=== PATIENT | male | born 1940 | race Caucasian/White ===

== ENCOUNTER 2019-12-31 13:53 | Outpatient (CLI) | payer MEDICARE, SELFPAY ==
--- NOTE | ~2019-12-31 | US_ITS ---
EXAMINATION: US art doppler w press LE BI DATE: 12/31/2019 15:10 INDICATION: Peripheral arterial disease. TECHNIQUE: Segmental pressures and plethysmographic and Doppler waveforms of the brachial and lower e xtremity arteries were obtained. COMPARISON: Arterial Doppler and segmental pressures 07/26/2018 FINDINGS: Right and left brachial artery pressures of 114 mm Hg and 130 mm Hg, respectively, are concordant (no rmal difference <= 30 mmHg). The right high-thigh pressure index was not measured (normal > 1.2). The right ankle-brachial index ( KEVIN) is 0.58 (normal >= 0.9-1.0), improved from 0.54 on 07/26/2018. The right great toe-brachial index (TBI) is 0.27 (normal >= 0.65). Arterial Doppler waveforms are biphasic from common femoral artery to the ankle. The left high-thigh pressure index was not measured. The left KEVIN is 0.47, worsened from 0.52 on 2018. The left TBI is 0.42. Arterial Doppler waveforms are biphasic from common femoral artery to the ankle. IMPRESSION: 1. Moderately decreased right KEVIN and severely decreased left KEVIN, consistent with arterial occlusive disease. Reviewed, dictated and finalized at location B. IMPRESSION: 1. Moderately decreased right KEVIN and severely decreased left KEVIN, consistent w ith arterial occlusive disease.
== END 2019-12-31 13:54 | disposition home or self-care (01) ==
LOC: ANHIMG 14:13
PROVIDERS: PCP Family Medicine; Visit Provider Internal Medicine Cardiovascular Disease
DX: I73.9 Peripheral vascular disease, unspecified (principal)
CPT/HCPCS: 93923

== ENCOUNTER 2020-12-23 12:06 | Outpatient (CLI) | payer MEDICARE, SELFPAY ==
--- NOTE | ~2020-12-23 | US_ITS ---
EXAMINATION: US art doppler w press ROSA BI DATE: 12/23/2020 13:24 INDICATION: Peripheral arterial disease. TECHNIQUE: Segmental pressures and plethysmographic and Doppler waveforms of the brachial and lower e xtremity arteries were obtained. COMPARISON: Ultrasound 12/31/2019 FINDINGS: Right and left brachial artery pressures of 147 mm Hg and 142 mm Hg, respectively, are concordant (no rmal difference <= 30 mmHg). The right ankle-brachial index (KEVIN) is 0.50 (normal >= 0.9-1.0). The right great toe-brachial index (TBI) is 0.44 (normal >= 0.65). Arterial Doppler waveforms are biphasic from common femoral artery to posterior tibial artery and poorly detectable in dorsalis pedis. The left KEVIN is 0.50. The left TBI is 0.41. Arterial Doppler waveforms are biphasic from common femor al artery to dorsalis pedis. IMPRESSION: 1. Moderately decreased ABIs with interval worsening on the right, consistent with arterial occlusive disease. Reviewed, dictated and finalized at location A. IMPRESSION: 1. Moderately decreased ABIs with interval worsening on the right, consistent w ith arterial occlusive disease.
== END 2020-12-23 12:07 | disposition home or self-care (01) ==
LOC: ANHIMG 12:11
PROVIDERS: PCP Family Medicine; Visit Provider Internal Medicine Cardiovascular Disease
DX: I73.9 Peripheral vascular disease, unspecified (principal)
CPT/HCPCS: 93923

== ENCOUNTER → 2021-05-15 11:09 | Outpatient (CLI) | payer MEDICARE, SELFPAY ==
--- NOTE | ~2021-05-15 | XR_ITS ---
XR hip RT 2V w AP pelvis DATE: 05/15/2021 11:29 INDICATION: Right hip pain TECHNIQUE: AP pelvis. AP and lateral views of right hip. COMPARISON: None FINDINGS: Multiple radiopaque seeds are noted overlying the prostate bed. There is severe calcificati on of the abdominal aorta, iliac arteries, right common femoral and femoral arteries. There is a sten t overlying left common iliac artery. No pelvic fracture or bone destruction is detected. The pubic symphysis and sacroiliac joints are int act. There is mild right hip osteoarthritis. No right hip fracture or dislocation, avascular necrosis or b one destruction is detected. IMPRESSION: Mild right hip osteoarthritis Severe atherosclerotic calcification of the abdominal aorta, iliac and femoral arteries Radiopaque prostate seeds Reviewed, dictated and finalized at location A. STICS TECH
== END ==
PROVIDERS: PCP Family Medicine; Visit Provider Family Medicine
DX: M25.551 Pain in right hip (principal); M16.11 Unilateral primary osteoarthritis, right hip; I70.0 Atherosclerosis of aorta
CPT/HCPCS: 73502

== ENCOUNTER 2022-01-27 07:45 | Outpatient (CLI) | payer MEDICARE, SELFPAY ==
--- NOTE | ~2022-01-27 | US_ITS ---
EXAMINATION: US art doppler w press LE BI DATE: 01/27/2022 09:23 INDICATION: Peripheral arterial occlusive disease. TECHNIQUE: Segmental pressures and plethysmographic and Doppler waveforms of the brachial and lower e xtremity arteries were obtained. COMPARISON: None. FINDINGS: Right and left brachial artery pressures of 138 mm Hg and 136 mm Hg, respectively, are concordant (no rmal difference <= 30 mmHg). The right ankle-brachial index (KEVIN) is 0.67 (normal >= 0.9-1). The right great toe-brachial index (T BI) is 0.29 (normal >= 0.6-0.8). Arterial waveforms are biphasic waveforms throughout with normal sys tolic upstrokes at the right common femoral and superficial femoral arteries and borderline delayed u pstrokes the more distal right popliteal, posterior tibial and dorsalis pedis arteries where there is some broadening of the systolic peaks. The left KEVIN is 0.55. The left TBI is 0.28. Arterial waveforms are biphasic waveforms throughout with normal systolic upstrokes at the left common femoral and superficial femoral arteries and borderline delayed upstrokes the more distal right popliteal, posterior tibial and dorsalis pedis arteries wher e there is some broadening of the systolic peaks. IMPRESSION: 1. Arterial occlusive disease to the bilateral lower limbs with moderately decreased ABIs and TBIs. Reviewed, dictated and finalized at location A. IMPRESSION: 1. Arterial occlusive disease to the bilateral lower limbs with moderately decr eased ABIs and TBIs.
== END 2022-01-27 07:46 | disposition home or self-care (01) ==
PROVIDERS: PCP Family Medicine; Visit Provider Internal Medicine Cardiovascular Disease
DX: I73.9 Peripheral vascular disease, unspecified (principal)
CPT/HCPCS: 93923

== ENCOUNTER → 2022-08-19 16:21 | Outpatient (CLI) | payer MEDICARE, SELFPAY ==
--- NOTE | ~2022-08-19 | XR_ITS ---
XR chest 2V DATE: 08/19/2022 16:38 INDICATION: Cough TECHNIQUE: 2 views COMPARISON: 01/2013 two-view chest FINDINGS: Status post sternotomy. Heart size is within normal limits. Is aortic calcification and mild unfolding. There is chronic left lung volume loss, left pleural thickening, blunting of left costophrenic angle, not significantly changed since 01/2013. No active infiltrate or consolidation, pleural effusion or pulmonary vascular congestion or pneumotho rax or other sylvian change since 01/2013 is evident. IMPRESSION: Chronic left lung volume loss, left pleural thickening; no active disease or significant change since 01/2013 is detected Reviewed, dictated and finalized at location L. IMPRESSION: Chronic left lung volume loss, left pleural thickening; no active d isease or significant change since 01/2013 is detected
== END ==
PROVIDERS: PCP Family Medicine; Visit Provider Family Medicine
DX: R05.9 Cough, unspecified (principal); R91.8 Other nonspecific abnormal finding of lung field
CPT/HCPCS: 71046

== ENCOUNTER 2023-02-14 14:02 | Outpatient (CLI) | payer MEDICARE, SELFPAY ==
--- NOTE | ~2023-02-14 | US_ITS ---
US art doppler w press LE BI INDICATION: Peripheral arterial disease. Claudication. TECHNIQUE: Segmental pressures and plethysmographic and Doppler waveforms of the brachial and lower e xtremity arteries were obtained. COMPARISON: 01/27/2022. FINDINGS: Atherosclerosis is noted in the common femoral and popliteal arteries. Right and left brachial artery pressures of 125 mm Hg and 129 mm Hg, respectively, are concordant (no rmal difference <= 30 mmHg). The right ankle-brachial index (KEVIN) is 0.61 (normal >= 0.9-1.0). The right great toe-brachial index (TBI) is 0.28 (normal >= 0.60). The left KEVIN is 0.52. The left TBI is 0.5. IMPRESSION: 1. Diminished bilateral ankle and toe brachial indices consistent with moderate peripheral arterial o cclusive disease. Reviewed, dictated and finalized at location L. IMPRESSION: 1. Diminished bilateral ankle and toe brachial indices consistent with moderate peripheral arterial occlusive disease.
== END 2023-02-14 14:03 | disposition home or self-care (01) ==
PROVIDERS: PCP Family Medicine; Visit Provider Internal Medicine Cardiovascular Disease
DX: I73.9 Peripheral vascular disease, unspecified (principal); Z95.828 Presence of other vascular implants and grafts
CPT/HCPCS: 93923

== ENCOUNTER → 2023-03-30 13:57 | Outpatient (CLI) | payer MEDICARE, SELFPAY ==
--- NOTE | ~2023-03-30 | XR_ITS ---
EXAMINATION: XR shoulder LT min 2V DATE: 03/30/2023 14:23 INDICATION: Left shoulder pain. TECHNIQUE: 4 views of left shoulder were obtained. COMPARISON: None. FINDINGS: There is superior subluxation of humeral head with narrowing of the subacromial space, cons istent with rotator cuff tear. There are changes of distal left clavicle resection. There is severe o steoarthritis of glenohumeral joint. Median sternotomy wires and mediastinal surgical clips are seen, likely from prior coronary artery bypass grafting. IMPRESSION: 1. Severe osteoarthritis of left glenohumeral joint. 2. Left rotator cuff tear. Reviewed, dictated and finalized at location E. E WORKER
--- NOTE | ~2023-03-30 | XR_ITS ---
EXAMINATION: XR shoulder RT min 2V DATE: 03/30/2023 14:23 INDICATION: Right shoulder pain. TECHNIQUE: 4 views of right shoulder were obtained. COMPARISON: None. FINDINGS: There is superior subluxation of humeral head with respect to glenoid with narrowing of the subacromial space and remodeling of the undersurface of the acromion, consistent with chronic rotato r cuff tear with cuff arthropathy. There is severe osteoarthritis of glenohumeral joint and moderate osteoarthritis of acromioclavicular joint. Median sternotomy wires and mediastinal surgical clips are seen, likely from prior coronary artery bypass grafting. IMPRESSION: 1. 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 2. 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 Reviewed, dictated and finalized at location E. GER BACKGROUND
== END ==
PROVIDERS: PCP Physician Assistant; Visit Provider Physician Assistant
DX: M19.012 Primary osteoarthritis, left shoulder (principal); M19.011 Primary osteoarthritis, right shoulder; M75.102 Unspecified rotator cuff tear or rupture of left shoulder, not specified as traumatic; M75.121 Complete rotator cuff tear or rupture of right shoulder, not specified as traumatic
CPT/HCPCS: 73030

== ENCOUNTER 2023-07-01 12:17 | Outpatient (CLI) | payer MEDICARE, SELFPAY ==
[2023-07-01 13:47] LABS: Influenza A QL RT-PCR Positive (Negative); Influenza B QL RT-PCR Negative (Negative); RSV RNA, RT-PCR Negative (Negative); SARS-CoV-2 RNA PCR Negative (Negative)
== END 2023-07-01 12:18 | disposition home or self-care (01) ==
LOC: ANHLAB 12:20
PROVIDERS: PCP Family Medicine; Visit Provider Physician Assistant
DX: R50.9 Fever, unspecified (principal); Z20.822 Contact with and (suspected) exposure to COVID-19
CPT/HCPCS: 87637

== ENCOUNTER 2024-02-09 22:55 | Emergency (ER) | payer MEDICARE, SELFPAY ==
--- NOTE | ~2024-02-09 | CT_ITS ---
CT head without contrast Indication: Trauma Technique: Serial scans were obtained through the brain without the administration of contrast. Dose reduction technique was used on this scan by utilizing automated exposure control and iterative recon struction technique. The dose-length product (DLP) was 605.33 mGy-cm. Findings: There is no evidence of intracranial hemorrhage, mass lesion, or acute infarct. The ventri cles and subarachnoid spaces are dilated, consistent with moderate atrophy. Low attenuation regions are seen within the periventricular white matter bilaterally, likely representing changes from chroni c microvascular ischemic disease. There is no evidence of edema, mass effect or midline shift. The visualized paranasal sinuses and mastoid air cells are clear. Impression: No intracranial hemorrhage, mass, or acute infarct. Atrophy and chronic white matter changes, as above. Reviewed, dictated and finalized at location . Impression: No intracranial hemorrhage, mass, or acute infarct. Atrophy and chronic white matter changes, as above.
[2024-02-09 22:49] VITALS: BP 91/55; PULSE 115; RESP 20; TEMP 37; O2SAT 95
[2024-02-09 23:02] VITALS: BP 80/61; PULSE 114; RESP 17; TEMP 37; O2SAT 96
[2024-02-09 23:13] LABS: Basophils Percent Auto 0.4 % (0.2-1.2); Eosinophils Absolute Auto 0.1 K/mm3 (0-0.3); Eosinophils Percent Auto 1.1 % (0-4.4); Hematocrit 33.3 % (42.0-52.0); Hemoglobin 11.2 g/dL (14.0-18.0); Immature Granulocyte Absolute 0.04 K/mm3 (0.00-0.031); Immature Granulocyte Percent A 0.4 % (0-0.5); Lymphocytes Absolute Auto 0.81 K/mm3 (0.9-3.2); Lymphocytes Percent Auto 8.2 % (18.3-44.2); Mean Corpuscular HGB Conc 33.6 g/dl (32-36); Mean Corpuscular Hemoglobin 33.5 pg (26-34); Mean Corpuscular Volume 99.7 fl (80-100); Mean Platelet Volume 8.5 fl (7.4-10.4); Monocytes Absolute Auto 0.7 K/mm3 (0.1-0.6); Monocytes Percent Auto 6.6 % (2.6-8.5); Neutrophils Absolute Auto 8.2 K/mm3 (1.3-6.7); Neutrophils Percent Auto 83.3 % (45.5-73.1); Platelet Count Result 153 k/mm3 (150-375); Red Blood Count 3.34 M/mm3 (4.6-6.20); Red Cell Distribution Width 13.2 % (11.5-14.5); White Blood Count 9.8 K/mm3 (4.5-10.0)
[2024-02-09] MEDS: SODIUM CHLORIDE 0.9% IV 1,000 ML 999 ML IV CONT (23:14)
[2024-02-09 23:30] LABS: Alanine Aminotransferase 22 U/L (6-50); Alkaline Phosphatase 70 U/L (38-126); Anion Gap 15 mmol/L (4-12); Aspartate Amino Transferase 26 U/L (17-59); Bilirubin,Total 0.3 mg/dL (0.2-1.3); Blood Urea Nitrogen 13 mg/dL (9-20); Calcium 8.8 mg/dL (8.4-10.2); Carbon Dioxide 18 mmol/L (22-30); Chloride 95 mmol/L (98-107); Estimated CRCL calculation 50 ml/min; Estimated Glomerular Filt Rate > 60; Ethanol 158 mg/dL (<10); Glucose 123 mg/dL (65-110); Sodium 128 mmol/L (137-145)
--- NOTE | 2024-02-09 23:45 | ED.FALL ---
HPI - Fall General Chief Complaint: Fall Stated Complaint: FALL, HYPOTENSION Time Seen by Provider: 02/09/24 23:16 History of Present Illness HPI Narrative: 83-year-old male presented to the emergency department for evaluation for a ground level fall. Patient went to the [facility] and after getting home he was intoxicated stumble and had difficulty getting him back into the house so she called EMS for assistance. She is unsure if he struck his head. Patient denies any current pain. Patient is very hard of hearing. Patient is pleasant and denies any pain or complaints. Related Data Home Medications Medication Instructions Recorded Confirmed atorvastatin 40 mg tablet 40 mg PO DAILY 11/06/19 10/07/23 cilostazol 100 mg tablet 100 mg PO BID 11/06/19 10/07/23 metoprolol succinate 25 mg 25 mg PO DAILY 11/06/19 10/07/23 tablet,extended release 24 hr tamsulosin 0.4 mg capsule (Flomax) 0.4 mg PO DAILY 05/06/20 10/07/23 multivitamin with minerals tablet PO 05/12/21 10/07/23 rivaroxaban 2.5 mg tablet (Xarelto) 2.5 mg PO BID 11/17/21 10/07/23 aspirin 81 mg tablet,delayed 81 mg PO DAILY 09/09/23 10/07/23 release Allergies Allergy/AdvReac Type Severity Reaction Status Date / Time azithromycin Allergy Mild FACIAL Verified 12/06/23 13:25 SWELLING MYCINS Allergy Intermediate Unknown Uncoded 12/06/23 13:25 Review of Systems Review of Systems: All systems reviewed & are unremarkable except as noted in HPI and below PMFSH Past Medical History Medical History CAD (coronary artery disease) History of prostate cancer HLD (hyperlipidemia) Hypertension with heart disease Impaired fasting glucose PAD (peripheral artery disease) Surgical History Surgical History History of repair of left rotator cuff Iliac artery stenosis, bilateral s/p stents S/P CABG (coronary artery bypass graft) Family History Family History Mother Carcinoma of colon Social History Social History (Reviewed 12/06/23 @ 13:25 by NIMO Kohli Smoking packs per day: 1 Smoking cigarettes per day: 20.0 Years smoked: 20 Smoking pack-years: 20.00 Smoking status: Former smoker Tobacco type: cigarettes Second hand tobacco smoke exposure: No Alcohol intake: current Alcohol use details: occasionally Substance use: never Substance use type: does not use Do You Feel Safe in your Home?: Yes Lack of Transportation: No Lack of Food: Never True Current Housing: I Have Housing Concerned About Future Housing: No Difficulty Paying Gas/Electric Bills: No Difficulty Paying for Meds: No Currently Unemployed: Decline to Answer Education: Bachelor's Degree Difficulty w/ Childcare or Family Care: No Living arrangements: with family Occupation/Education: retired Gender identity (if verbalized by the patient): Male Sexual Orientation (if Verbalized by the Patient): Straight or Heterosexual Exam Narrative: APPEARANCE: Well appearing, no pain, no distress, well-nourished. HEAD: normocephalic, atraumatic. EYES: PERRLA/EOMI, conjunctivae clear. NOSE: Normal no drainage EARS:TMS clear with good light reflex. THROAT: Pharynx clear, no exudate. NECK: Supple. No adenopathy, no masses. RESPIRATORY: Airway patent, respirations nonlabored. Clear to auscultation bilaterally, no rales, rhonchi, wheezing. CARDIOVASCULAR: Regular rate and rhythm without murmurs rubs or gallops. ABDOMINAL: Soft, nontender, nondistended, normal bowel sounds MUSCULOSKELETAL: Moves all extremities. Strength/ROM intact, No edema, No calf tenderness. NEURO: Alert. Cranial nerves II through XII intact. Good gait. Good coordination SKIN: Warm, dry. Normal Color PSYCHIATRIC: Normal affect/mood. Course Course Emergency Course: Patient was able to ambulate at b
[2024-02-09 23:50] VITALS: BP 119/85; PULSE 132; RESP 20; O2SAT 96
[2024-02-10 01:26] VITALS: BP 125/84; PULSE 119; RESP 18; O2SAT 97
[2024-02-10 03:46] VITALS: BP 113/80; PULSE 110; RESP 14; O2SAT 96
--- NOTE | 2024-02-10 05:30 | PC.NURSE ---
This RN and patient have both called pt multiple times in a 2 hour span.
== END 2024-02-10 06:18 | disposition home or self-care (01) ==
PROVIDERS: Physician Assistant; Emergency Provider Emergency Medicine; PCP Family Medicine
DX: S09.90XA Unspecified injury of head, initial encounter (principal); F10.129 Alcohol abuse with intoxication, unspecified; Y90.6 Blood alcohol level of 120-199 mg/100 ml; I25.10 Atherosclerotic heart disease of native coronary artery without angina pectoris; I11.9 Hypertensive heart disease without heart failure; I73.9 Peripheral vascular disease, unspecified; E78.5 Hyperlipidemia, unspecified; Z95.1 Presence of aortocoronary bypass graft; Z85.46 Personal history of malignant neoplasm of prostate; Z87.891 Personal history of nicotine dependence; Z79.01 Long term (current) use of anticoagulants; Z79.899 Other long term (current) drug therapy; W01.0XXA Fall on same level from slipping, tripping and stumbling without subsequent striking against object, initial encounter
CPT/HCPCS: 36415; 70450; 80053; 80307; 85025; 96360; 99284; J7030

== ENCOUNTER 2024-07-11 14:58 | Outpatient (CLI) | payer MEDICARE, SELFPAY ==
--- OUTSIDE RECORDS SUMMARY | 2024-07-11 15:03 | XMS_ITS | Clinical Summary ---
Author Organization [facility] [place] [address] Address [address] [place] [address] Care Team Providers Care Equal Opportunity Assistant Name Role Phone King Carvalho MD Primary Care Provider Allergies Active Allergy Reactions Criticality Noted Date Comments Azithromycin Angioedema High Erythromycin Angioedema High Medications aspirin (ASPIRIN LOW DOSE) 81 mg tablet take 1 Tablet (81MG) by oral route every day 0 2 Active lisinopriL (PRINIVIL,ZEST RIL) 40 mg tablet Take 1 tablet (40 mg total) by mouth daily 1 Active tamsulosin (FLOMAX) 0.4 mg extended release capsule Take 1 capsule (0.4 mg total) by mouth daily Active Xarelto 2.5 mg tablet TAKE 1 TABLET(2.5 MG) BY MOUTH TWICE DAILY 60 tablet 11 4 Active metoprolol XL (TOPROL-XL) 25 mg extended release tablet TAKE 1 TABLET BY MOUTH AT BEDTIME 90 tablet 2 4 Active cilostazoL (PLETAL) 100 mg tablet TAKE 1 TABLET(100 MG) BY MOUTH TWICE DAILY 180 tablet 1 4 Active atorvastatin (LIPITOR) 80 mg tablet TAKE 1/2 TABLET(40 MG) BY MOUTH EVERY DAY 45 tablet 3 5 Active atorvastatin (LIPITOR) 80 mg tablet TAKE 1/2 TABLET(40 MG) BY MOUTH EVERY DAY 45 tablet 2 4 06/25/19 25 Discontinued Active Problems Problem Noted Date Diagnosed Date Coronary artery disease invo lving [place] coronary artery of [place] heart without angina pectoris 11/17/2017 Hx of CABG 11/17/2017 S/P insertion of iliac artery stent 12/13/2016 Arteriosclerosis of artery of extremity 02/05/20 14 Overview (08/26/2016): Atherosclerosis of lower extremity with claudication Resolved Problems Problem Noted Date Diagnosed Date Resolved Date Dilated cardiomyopathy (CMS/HCC) 03/16/2023 03/16/2023 Encounters Date Type Department Care Team Description 05/01/2024 1:00 PM PATCH WORKER Office Visit [facility] Medical Group Cardiology at [address] [place] [address] Irvin Castro MD Coronary artery disease involving [place] coronary artery of [place] heart without angina pectoris (Primary Dx); Hx of CABG from Last 3 Months Surgical History Surgery Date Site/Laterality Comments CAROTID STENT Medical History Medical History Date Comments Hypertension Hypertension Family History Medical History Relation Name Comments Blood Clot Brother blood clot; Relation Name Status Comments Brother Social History Tobacco Use Types Packs/Day Years Used Date Smoking Tobacco: Former Cigarettes Q uit: 01/13/2008 Smokeless Tobacco: Never Tobacco Cessation:Counseling Given: Not Answered Alcohol Use Standard Drinks/Week Comments Yes 14 (1 standard drink = 0.6 oz pu re alcohol) Sex and Gender Information Value Date Recorded Sex Assigned at Not on file Legal Sex Male 3:17 PM PATCH WORKER Gender Identity Not on file Sexual Orientation Not on file Obstetrics History Last Filed Vital Signs Vital Sign Reading Time Taken Comments Blood Pressure 118/76 05/01/2024 1:00 PM PATCH WORKER Pulse 70 05/01/2024 1:00 PM PATCH WORKER Temperature - - Respiratory Rate 18 12/13/2016 11:37 AM CDT Oxygen Saturation 99% 05/01/2024 1:00 PM PATCH WORKER Inhaled Oxygen Concentration - - Weight 86.2 kg (190 lb) 05/01/2024 1:00 PM PATCH WORKER Height 174 cm (5' 8.5 ) 05/01/2024 1:00 PM PATCH WORKER Body Mass Index 28.47 05/01/2024 1:00 PM PATCH WORKER Plan of Treatment Health Maintenance Due Date Last Done Comments Depression Screening 1941 Fall Risk Assessment 1941 DTaP/Tdap/Td Vaccine (1 - Tdap) 1952 Hepatitis B Screening 11/30/1959 Zoster Vaccine (1 of 2) 11/30/1991 Abdominal Aortic Aneurysm (AAA) Screen 2006 Pneumococcal vaccine 65+ (1 of 1 - PCV) 2006 Well Visit 65+ 2006 Influenza Vaccine (#1) 2024 06/20/2017 Insurance [facility] Address: [address] [address] [place] [address] [facility] Address: [address] [address] [place] [address] Care Teams Equal Opportunity Assistant Relationship Specialty Start Date End Date King Carvalho MD [address] [place] [address] PCP - General Family Medicine 06/12/19
--- OUTSIDE RECORDS SUMMARY | 2024-07-11 15:03 | XMS_ITS | Referral Summary ---
Author Organization [facility] [address] Address [address] [place] [address] Care Team Providers Care Production Worker Name Role Phone King Carvalho MD Primary Care Provider Encounters Date Type Department Care Team Description 05/01/2024 1:00 PM BUILDING CUSTODIAL SUPERVISOR Office Visit [facility] Medical Group Cardiology at [address] [place] [address] Irvin Castro MD Coronary artery disease involving [place] coronary artery of [place] heart without angina pectoris (Primary Dx); Hx of CABG from Last 3 Months Allergies Active Allergy Reactions Criticality Noted Date [...] Diagnosed Date Coronary artery disease invo lving [place] coronary artery of [place] heart without angina pectoris 11/17/2017 Hx of CABG 11/17/2017 S/P insertion of iliac artery stent 12/13/2016 Arteriosclerosis of artery of extremity 02/05/20 14 Overview (08/26/2016): Atherosclerosis of lower extremity with claudication Resolved Problems Problem Noted Date Diagnosed Date Resolved Date Dilated cardiomyopathy (CMS/HCC) 03/16/2023 03/16/2023 Social History Tobacco Use Types Packs/Day Years Used Date Smoking Tobacco: Former Cigarettes Q uit: 01/13/2008 Smokeless Tobacco: Never Tobacco Cessation:Counseling Given: Not Answered Alcohol Use Standard Drinks/Week Comments Yes 14 (1 standard drink = 0.6 oz pu re alcohol) Sex and Gender Information Value Date Recorded Sex Assigned at Not on file Legal Sex Male 3:17 PM BUILDING CUSTODIAL SUPERVISOR Gender Identity Not on file Sexual Orientation Not on file Last Filed Vital Signs Vital Sign Reading Time Taken Comments Blood Pressure 118/76 05/01/2024 1:00 PM BUILDING CUSTODIAL SUPERVISOR Pulse 70 05/01/2024 1:00 PM BUILDING CUSTODIAL SUPERVISOR Temperature - - Respiratory Rate 18 12/13/2016 11:37 AM CDT Oxygen Saturation 99% 05/01/2024 1:00 PM BUILDING CUSTODIAL SUPERVISOR Inhaled Oxygen Concentration - - Weight 86.2 kg (190 lb) 05/01/2024 1:00 PM BUILDING CUSTODIAL SUPERVISOR Height 174 cm (5' 8.5 ) 05/01/2024 1:00 PM BUILDING CUSTODIAL SUPERVISOR Body Mass Index 28.47 05/01/2024 1:00 PM BUILDING CUSTODIAL SUPERVISOR Plan of Treatment Not on file Insurance [employer] Care Teams Production Worker Relationship Specialty Start Date End Date King Carvalho MD [address] [facility] [address] [place] [address] PCP - General Family Medicine 06/12/19
[2024-07-11 15:35] LABS: Add Urine Microscopic? YES; Appearance Urine Clear (Clear); Bacteria Urine None Seen /hpf; Bilirubin Urine Negative (Negative); Blood Urine Negative (Negative); Color Urine Yellow (Yellow); Glucose Urine UA Negative (Negative); Ketones Urine Negative (Negative); Leukocyte Esterase Ur Negative LEU/UL (Negative); Nitrate Urine Negative (Negative); Non Pathogenic Casts 0-2; Protein Urine Trace mg/dL (Negative); RBC Urine 0-2 /hpf (0-2); Specific Grav Ur 1.015 (1.001-1.035); Squamous Epithelial Cell Urine None Seen /hpf (Few); Urobilinogen Urine 0.2 mg/dL (<2.0); WBC Urine 0-5 /hpf (0-3); pH Urine 6.5 (5.0-9.0)
[2024-07-11 15:38] LABS: Alanine Aminotransferase 22 U/L (6-50); Albumin Level 4.4 g/dL (3.5-5.1); Alkaline Phosphatase 63 U/L (38-126); Anion Gap 10 mmol/L (4-12); Aspartate Amino Transferase 24 U/L (17-59); Bilirubin,Total 0.6 mg/dL (0.2-1.3); Blood Urea Nitrogen 22 mg/dL (9-20); Calcium 9.9 mg/dL (8.4-10.2); Carbon Dioxide 27 mmol/L (22-30); Chloride 99 mmol/L (98-107); Estimated Glomerular Filt Rate > 60; Glucose 88 mg/dL (65-110); Potassium 4.7 mmol/L (3.4-5.0); Sodium 136 mmol/L (137-145)
== END 2024-07-11 14:59 | disposition home or self-care (01) ==
PROVIDERS: PCP Family Medicine; Visit Provider Family Medicine
DX: R73.01 Impaired fasting glucose (principal); I11.9 Hypertensive heart disease without heart failure; N39.0 Urinary tract infection, site not specified
CPT/HCPCS: 36415; 80053; 81001

== ENCOUNTER 2024-07-18 14:48 | Outpatient (CLI) | payer MEDICARE, SELFPAY ==
--- NOTE | ~2024-07-18 | CT_ITS ---
EXAMINATION: CT brain wo con DATE: 07/18/2024 15:06 INDICATION: Transient cerebral ischemic attack, unspecified. TECHNIQUE: Computed tomography (CT) of the head was performed without intravenous contrast. The mA wa s adjusted according to patient size. Iterative reconstruction technique was employed. The dose-lengt h product was 681.00 mGy-cm. COMPARISON: Head CT 02/10/2024 FINDINGS: There is an empty sella. There are old lacunar infarcts in the basal ganglia bilaterally. T here are scattered areas of low attenuation in the cerebral white matter. There is no intracranial he morrhage, acute infarction, or abnormal intracranial mass lesion. The ventricles are normal in size. There are likely changes of ocular lens replacement surgeries. There is mucosal thickening in the par anasal sinuses. There is a trace left mastoid effusion. IMPRESSION: 1. Old lacunar infarcts in the bilateral basal ganglia. 2. Stable moderate nonspecific cerebral white matter disease, which likely represents chronic small v essel ischemic disease. Reviewed, dictated and finalized at location A. S AMBASSADOR IMPRESSION: 1. Old lacunar infarcts in the bilateral basal ganglia. 2. Stable moderate nonspecific cerebral white matter disease, which likely repr esents chronic small vessel ischemic disease.
--- OUTSIDE RECORDS SUMMARY | 2024-07-18 17:05 | XMS_ITS | Referral Summary ---
Author Organization [facility] [address] Address [address] [place] [address] Care Team Providers Care Animal Husbandman Name Role Phone King Carvalho MD Primary Care Provider Encounters Date Type Department Care Team Description 05/01/2024 1:00 PM PUBLIC SPEAKING COACH Office Visit [facility] Medical Group Cardiology at [address] [place] [address] Irvin Castro MD Coronary artery disease involving [place] coronary artery of [place] heart without angina pectoris (Primary Dx); Hx [...] Diagnosed Date Coronary artery disease invo lving [place] coronary artery of [place] heart without angina pectoris 11/17/2017 Hx of [...] on file Legal Sex Male 3:17 PM PUBLIC SPEAKING COACH Gender Identity Not on file Sexual Orientation Not on file Last Filed Vital Signs Vital Sign Reading Time Taken Comments Blood Pressure 118/76 05/01/2024 1:00 PM PUBLIC SPEAKING COACH Pulse 70 05/01/2024 1:00 PM PUBLIC SPEAKING COACH Temperature - - Respiratory Rate 18 12/13/2016 11:37 AM CDT Oxygen Saturation 99% 05/01/2024 1:00 PM PUBLIC SPEAKING COACH Inhaled Oxygen Concentration - - Weight 86.2 kg (190 lb) 05/01/2024 1:00 PM PUBLIC SPEAKING COACH Height 174 cm (5' 8.5 ) 05/01/2024 1:00 PM PUBLIC SPEAKING COACH Body Mass Index 28.47 05/01/2024 1:00 PM PUBLIC SPEAKING COACH Plan of Treatment Not on file Insurance [employer] Care Teams Animal Husbandman Relationship Specialty Start Date End Date King Carvalho MD [address] [facility] [address] [place] [address] PCP - General Family Medicine 06/12/19
--- OUTSIDE RECORDS SUMMARY | 2024-07-18 17:05 | XMS_ITS | Clinical Summary ---
Author Organization [facility] [place] [address] Address [address] [place] [address] Care Team Providers Care Experimental Assembler Name Role Phone King Carvalho MD Primary [...] Diagnosed Date Coronary artery disease invo lving [place] coronary artery of [place] heart without angina pectoris 11/17/2017 Hx of CABG 11/17/2017 S/P insertion of iliac artery stent 12/13/2016 Arteriosclerosis of artery of extremity 02/05/20 14 Overview (08/26/2016): Atherosclerosis of lower extremity with claudication Resolved Problems Problem Noted Date Diagnosed Date Resolved Date Dilated cardiomyopathy (CMS/HCC) 03/16/2023 03/16/2023 Encounters Date Type Department Care Team Description 05/01/2024 1:00 PM DRUG ABUSE COUNSELOR Office Visit [facility] Medical Group Cardiology at [address] [place] [address] Irvin Castro MD Coronary artery disease involving [place] coronary artery of [place] heart without angina pectoris (Primary Dx); Hx [...] on file Legal Sex Male 3:17 PM DRUG ABUSE COUNSELOR Gender Identity Not on file Sexual Orientation Not on file Obstetrics History Last Filed Vital Signs Vital Sign Reading Time Taken Comments Blood Pressure 118/76 05/01/2024 1:00 PM DRUG ABUSE COUNSELOR Pulse 70 05/01/2024 1:00 PM DRUG ABUSE COUNSELOR Temperature - - Respiratory Rate 18 12/13/2016 11:37 AM CDT Oxygen Saturation 99% 05/01/2024 1:00 PM DRUG ABUSE COUNSELOR Inhaled Oxygen Concentration - - Weight 86.2 kg (190 lb) 05/01/2024 1:00 PM DRUG ABUSE COUNSELOR Height 174 cm (5' 8.5 ) 05/01/2024 1:00 PM DRUG ABUSE COUNSELOR Body Mass Index 28.47 05/01/2024 1:00 PM DRUG ABUSE COUNSELOR Plan of Treatment Health Maintenance Due Date Last Done Comments Depression Screening 1941 Fall Risk Assessment 1941 DTaP/Tdap/Td Vaccine (1 - Tdap) 1952 Hepatitis B Screening 11/30/1959 Zoster Vaccine (1 of 2) 11/30/1991 Abdominal Aortic Aneurysm (AAA) Screen 2006 Pneumococcal vaccine 65+ (1 of 1 - PCV) 2006 Well Visit 65+ 2006 Influenza Vaccine (#1) 2024 06/20/2017 Insurance Care Teams Experimental Assembler Relationship Specialty Start Date End Date King Carvalho MD [address] [place] [address] PCP - General Family Medicine 06/12/19
== END 2024-07-18 14:49 | disposition home or self-care (01) ==
PROVIDERS: PCP Family Medicine; Visit Provider Family Medicine
DX: I63.81 Other cerebral infarction due to occlusion or stenosis of small artery (principal); R90.82 White matter disease, unspecified
CPT/HCPCS: 70450

== ENCOUNTER 2024-11-07 08:58 | Outpatient (CLI) | payer MEDICARE, SELFPAY ==
--- NOTE | ~2024-11-07 | US_ITS ---
Ankle Brachial Index with Ultrasound Dopplers and Pulse Volume Recordings History: Right foot pain Technique: Pressures in the arm and lower extremity were obtained. Additionally, arterial and pulse volume waveforms were obtained bilaterally. Thighs were not compressed secondary to arterial stents. Findings: Segmental Pressures: Right calf: 83 Right posterior tibial: 63 Right dorsalis pedis: 66 Left calf: 69 Left posterior tibial: 56 Left dorsalis pedis: 47 There are monophasic waveforms bilaterally. Decreased amplitude is also detected bilaterally, right more than left. Spectral broadening is observed. KEVIN: On the right is 0.62 and on the left is 0.53 TBI: On the right is 0.29 and on the left is 0.46 Impression: Findings consistent with moderate peripheral arterial disease with multilevel stenoses, a s detailed above. Reviewed, dictated and finalized at location A. Impression: Findings consistent with moderate peripheral arterial disease with multilevel stenoses, as detailed above.
--- OUTSIDE RECORDS SUMMARY | 2024-11-07 09:37 | XMS_ITS | Referral Summary ---
Author Organization [facility] [place] [address] Address [address] [place] [address] Care Team Providers Care Windows Systems Admin Name Role Phone King Carvalho MD Primary [...] (0.4 mg total) by mouth daily Active atorvastatin (LIPITOR) 80 mg tablet TAKE 1/2 TABLET(40 MG) BY MOUTH EVERY DAY 45 tablet 3 5 Active metoprolol XL (TOPROL-XL) 25 mg extended release tablet TAKE 1 TABLET BY MOUTH AT BEDTIME 90 tablet 2 5 Active cilostazoL (PLETAL) 100 mg tablet TAKE 1 TABLET(100 MG) BY MOUTH TWICE DAILY 180 tablet 1 5 Active rivaroxaban (Xarelto) 2.5 mg tablet TAKE 1 TABLET(2.5 MG) BY MOUTH TWICE DAILY 180 tablet 1 5 Active Xarelto 2.5 mg tablet TAKE 1 TABLET(2.5 MG) BY MOUTH TWICE DAILY 60 tablet 11 4 10/23/19 25 Discontinued Active Problems Problem Noted Date Diagnosed Date Coronary artery disease invo lving [place] coronary artery of [place] heart without angina pectoris 11/17/2017 Hx of CABG 11/17/2017 S/P insertion of iliac artery stent 12/13/2016 Arteriosclerosis of artery of extremity 02/05/20 14 Overview (08/26/2016): Atherosclerosis of lower extremity with claudication Resolved Problems Problem Noted Date Diagnosed Date Resolved Date Dilated cardiomyopathy 03/16/202303/16 Social History Tobacco Use Types Packs/Day Years Used Date Smoking Tobacco: Former Cigarettes Q uit: 01/13/2008 Smokeless Tobacco: Never Tobacco Cessation:Counseling Given: Not Answered Alcohol Use Standard Drinks/Week Comments Yes 14 (1 standard drink = 0.6 oz pu re alcohol) Sex and Gender Information Value Date Recorded Sex Assigned at Not on file Legal Sex 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 Gender Identity Not on file Sexual Orientation Not on file Last Filed Vital Signs Vital Sign Reading Time Taken Comments Blood Pressure 118/76 05/01/2024 1:00 PM LIMB DRIVER Pulse 70 05/01/2024 1:00 PM LIMB DRIVER Temperature - - Respiratory Rate 18 12/13/2016 11:37 AM CDT Oxygen Saturation 99% 05/01/2024 1:00 PM LIMB DRIVER Inhaled Oxygen Concentration - - Weight 86.2 kg (190 lb) 05/01/2024 1:00 PM LIMB DRIVER Height 174 cm (5' 8.5) 05/01/2024 1:00 PM LIMB DRIVER Body Mass Index 28.47 05/01/2024 1:00 PM LIMB DRIVER Plan of Treatment Not on file Insurance [facility] Care Teams Windows Systems Admin Relationship Specialty Start Date End Date King Carvalho MD [address] [place] [address] PCP - General Family Medicine 06/12/19
--- OUTSIDE RECORDS SUMMARY | 2024-11-07 09:37 | XMS_ITS | Clinical Summary ---
Author Organization [facility] [place] [facility] [place] [address] Address [address] [place] [address] Care Team Providers Care Telephone Answering Service Operator Name Role Phone King Carvalho MD Primary [...] Diagnosed Date Coronary artery disease invo lving [place] coronary artery of [place] heart without angina pectoris 11/17/2017 Hx of CABG 11/17/2017 S/P insertion of iliac artery stent 12/13/2016 Arteriosclerosis of artery of extremity 02/05/20 14 Overview (08/26/2016): Atherosclerosis of lower extremity with claudication Resolved Problems Problem Noted Date Diagnosed Date Resolved Date Dilated cardiomyopathy 03/16/202303/16 Surgical History Surgery Date Site/Laterality Comments CAROTID [...] on file 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 Gender Identity Not on file Sexual Orientation Not on file Obstetrics History Last Filed Vital Signs Vital Sign Reading Time Taken Comments Blood Pressure 118/76 05/01/2024 1:00 PM TOOL AND DIE MAKER/DESIGNER Pulse 70 05/01/2024 1:00 PM TOOL AND DIE MAKER/DESIGNER Temperature - - Respiratory Rate 18 12/13/2016 11:37 AM CDT Oxygen Saturation 99% 05/01/2024 1:00 PM TOOL AND DIE MAKER/DESIGNER Inhaled Oxygen Concentration - - Weight 86.2 kg (190 lb) 05/01/2024 1:00 PM TOOL AND DIE MAKER/DESIGNER Height 174 cm (5' 8.5) 05/01/2024 1:00 PM TOOL AND DIE MAKER/DESIGNER Body Mass Index 28.47 05/01/2024 1:00 PM TOOL AND DIE MAKER/DESIGNER Plan of Treatment Health Maintenance Due Date Last Done Comments Depression Screening 1941 Fall Risk Assessment 1940 DTaP/Tdap/Td Vaccine (1 - Tdap) 1952 Hepatitis B Screening 11/30/1959 Pneumococcal vaccine 65+ (1 of 1 - PCV) 11/30/1991 Zoster Vaccine (1 of 2) 11/30/1991 Abdominal Aortic Aneurysm (AAA) Screen 2006 Well Visit 65+ 2006 Influenza Vaccine (Season Ended) 2025 06/20/[address] [facility] MEDICARE ADVANTAGE [facility] Address: [address] [address] [place] [address] [facility] Address: [address] [address] [place] [address] Care Teams Telephone Answering Service Operator Relationship Specialty Start Date End Date King Carvalho MD [address] [facility] [address] [place] [address] PCP - General Family Medicine 06/12/19
== END 2024-11-07 08:59 | disposition home or self-care (01) ==
PROVIDERS: PCP Family Medicine; Visit Provider Internal Medicine Cardiovascular Disease
DX: I73.9 Peripheral vascular disease, unspecified (principal)
CPT/HCPCS: 93923

== ENCOUNTER 2024-11-09 11:23 | Outpatient (CLI) | payer MEDICARE, SELFPAY ==
--- NOTE | ~2024-11-09 | XR_ITS ---
AP and lateral views of the right hip Clinical history: Pain Findings: No acute fracture or dislocation is seen. Osseous alignment is anatomic. Bilateral hip and SI joint spaces are preserved. 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 Extensive vascular calcifi cations are present. Impression: Unremarkable right hip joint. Other findings, as above. Reviewed, dictated and finalized at location . Impression: Unremarkable right hip joint. Other findings, as above.
== END 2024-11-09 11:24 | disposition home or self-care (01) ==
LOC: MICIMG 11:24
PROVIDERS: PCP Family Medicine; Visit Provider Family Medicine
DX: M25.551 Pain in right hip (principal)
CPT/HCPCS: 73502